=== PATIENT | female | born 1985 | race African-American/Black ===

== ENCOUNTER → 2020-01-10 | Outpatient (CLI) | payer MEDICAID ==
[~2020-01-10] MED LIST: BUME1TAB21 PO; CARV12.52 PO; FERR325T16 PO; LISI-167 PO; MAGN400T50 PO; POTA20TA6 PO; SPIR25TA PO
== END | disposition home or self-care (01) ==
LOC: CFH 09:53
PROVIDERS: ATTEND Internal Medicine Cardiovascular Disease
DX: I42.0 Dilated cardiomyopathy (principal); I42.9 Cardiomyopathy, unspecified; I50.22 Chronic systolic (congestive) heart failure; Z95.810 Presence of automatic (implantable) cardiac defibrillator
CPT/HCPCS: 71046

== ENCOUNTER 2020-06-25 11:40 | Outpatient (CLI) | payer MEDICAID | END 2020-06-25 23:59 | disposition home or self-care (01) | LOC: CFH 11:40 | PROVIDERS: ATTEND Internal Medicine Cardiovascular Disease | DX: I42.0 Dilated cardiomyopathy (principal); I42.9 Cardiomyopathy, unspecified; I50.22 Chronic systolic (congestive) heart failure; I50.23 Acute on chronic systolic (congestive) heart failure; R57.0 Cardiogenic shock; Z95.810 Presence of automatic (implantable) cardiac defibrillator | CPT/HCPCS: 71046 ==

== ENCOUNTER → 2020-07-04 | Outpatient (CLI) | payer MEDICAID ==
[~2020-07-04] MED LIST changes: +FERR324T23 PO; -FERR325T16 PO
== END | disposition home or self-care (01) ==
LOC: CVU 06:59
PROVIDERS: ATTEND Internal Medicine Clinical Cardiac Electrophysiology
DX: I11.0 Hypertensive heart disease with heart failure (principal); I50.22 Chronic systolic (congestive) heart failure
CPT/HCPCS: 93306

== ENCOUNTER 2020-07-12 14:44 | Outpatient (CLI) | payer MEDICAID ==
[~2020-07-12 14:44] MED LIST changes: +POTA-143 PO; -POTA20TA6 PO
[2020-07-30] MEDS ORDERED: OXYC1TAB12 PO (09:21)
== END 2020-07-12 23:59 | disposition home or self-care (01) ==
LOC: STAR 14:44
PROVIDERS: ATTEND Internal Medicine Clinical Cardiac Electrophysiology
DX: Z20.822 Contact with and (suspected) exposure to COVID-19 (principal)
CPT/HCPCS: U0003

== ENCOUNTER 2020-07-16 12:55 | Inpatient (IN) | payer MEDICAID ==
[~2020-07-16] VITALS: Ht 157.5 cm; Wt 120.0 kg
[~2020-07-16 12:55] MED LIST changes: -POTA-143 PO; +POTA20TA6 PO
[2020-07-16] MEDS: SODIUM CHLORIDE 0.9% 1,000 ML IV SCH ×2 (14:00→22:00)
[2020-07-16] MEDS ORDERED: POTA20TA14 PO (14:09)
[2020-07-16] MEDS ORDERED: SPIR25TA5 PO (14:12)
[2020-07-16 14:13] VITALS: BP 139/92
[2020-07-16 14:19] LABS: MEAN CORPUSCULAR HGB CONC 34.1 g/dL (32.4-35.8); MEAN PLATELET VOLUME 7.7 fL (7.4-10.4); PLATELET COUNT 310 x10^3/uL (130-400); RED BLOOD COUNT 4.65 x10^6/uL (3.82-5.3); RED CELL DISTRIBUTION WIDTH 12.6 % (9.6-15.2)
[2020-07-16 14:31] LABS: ANION GAP 6 mmol/L (5-15); CALCIUM 9.2 mg/dL (8.5-10.1); CHLORIDE 103 mmol/L (98-107); CREATININE 1.11 mg/dL (0.55-1.02)
[2020-07-16] MEDS ORDERED: MIDAZOLAM 1 MG/ML, 2ML ONE (14:54)
[2020-07-16] MEDS ORDERED: CEFAZOLIN PMX 1GM/50ML 50 ML ONE (14:54)
[2020-07-16] MEDS ORDERED: CEFAZOLIN 1,000 MG ONE (14:54)
[2020-07-16] MEDS ORDERED: LIDOCAINE 2%, 20ML ONE (14:54)
[2020-07-16] MEDS ORDERED: FENTANYL PF 250 MCG/5ML ONE (14:55)
[2020-07-16 15:28] LABS: MD YES
[2020-07-16 15:30] LABS: <PLATELET ESTIMATE> ADEQUATE; <PLT MORPHOLOGY> NORMAL PLT MORPH; <RBC MORPHOLOGY> NORMAL; BASOS#(MANUAL) 0.19 x10^3/uL (0-0.1); BASOS% (MANUAL) 2 % (0-1); EOS#(MANUAL) 1.03 x10^3/uL (0.0-0.4); EOS% (MANUAL) 11 % (1-7); LYMPH#(MANUAL) 2.44 x10^3/uL (1-3.4); LYMPHS% (MANUAL) 26 % (22-44); MONOS#(MANUAL) 0.19 x10^3/uL (0.3-2.7); MONOS% (MANUAL) 2 % (2-9); SEG#(MANUAL) 5.55 x10^3/uL (1.8-6.8); SEGS% (MANUAL) 59 % (42-75)
[2020-07-16] MEDS ORDERED: PHENYLEPHRINE 10 MG/ML ONE (15:35)
[2020-07-16] MEDS ORDERED: DEXAMETHASONE 4 MG/ML, 5ML ONE (15:35)
[2020-07-16] MEDS ORDERED: PROPOFOL 10 MG/ML, 20ML ONE (15:35)
[2020-07-16] MEDS ORDERED: SUCCINYLCHOLINE 20 MG/ML, 10ML ONE (15:35)
[2020-07-16] MEDS ORDERED: ONDANSETRON 2MG/ML, 2ML ONE (15:51)
[2020-07-16] MEDS ORDERED: ROCURONIUM 10MG/ML,5ML ONE (15:51)
[2020-07-16] MEDS ORDERED: FENTANYL PF 100 MCG/2ML ONE (16:24)
[2020-07-16] MEDS ORDERED: HEPARIN 1,000 UNITS/ML, 30ML ONE (16:36)
[2020-07-16] MEDS ORDERED: HOLD MEDICATION MC PRN (19:00)
[2020-07-16] MEDS: HYDROcodone/APAP 5/325 TABLET PO PRN ×2 (20:47→22:09)
[2020-07-16] MEDS: CARVEDILOL 12.5 MG TABLET PO SCH (22:09)
[2020-07-16] MEDS ORDERED: LISINOPRIL 10 MG TABLET ONE (22:29)
[2020-07-16] MEDS ORDERED: LISINOPRIL 10 MG TABLET PO ONE (22:30)
[2020-07-16] MEDS: SODIUM CHLORIDE FLUSH 10ML SYR IVF SCH (22:55)
[2020-07-17] MEDS: HYDROcodone/APAP 5/325 TABLET PO PRN ×2 (06:17→10:30)
[2020-07-17] MEDS: CARVEDILOL 12.5 MG TABLET PO SCH (06:17)
[2020-07-17] MEDS ORDERED: POTASSIUM CHLORIDE 20 MEQ TAB.ER.PRT PO SCH (08:00)
[2020-07-17] MEDS: SODIUM CHLORIDE FLUSH 10ML SYR IVF SCH (08:33)
[2020-07-17] MEDS ORDERED: SPIRONOLACTONE 25 MG TABLET PO SCH (09:00)
[2020-07-17] MEDS ORDERED: BUMETANIDE 1 MG TABLET PO SCH (09:00)
[2020-07-17] MEDS ORDERED: LISINOPRIL 10 MG TABLET PO SCH (09:00)
[2020-07-17] MEDS ORDERED: ACET325T14 PO (09:59)
[2020-07-17] MEDS ORDERED: HYDR-2214 PO (10:23)
== END 2020-07-17 11:10 | disposition home or self-care (01) | DRG 177 ==
LOC: CACL 12:55 → OBSVTOIN 19:21 → CCU 19:21
PROVIDERS: ADMIT Internal Medicine Clinical Cardiac Electrophysiology; ATTEND Internal Medicine Clinical Cardiac Electrophysiology
PROC: 02H63KZ Insertion of Defibrillator Lead into Right Atrium, Percutaneous Approach (ICD-10-PCS; 2020-07-16)
PROC: 02HK3KZ Insertion of Defibrillator Lead into Right Ventricle, Percutaneous Approach (ICD-10-PCS; 2020-07-16)
PROC: 02PA3MZ Removal of Cardiac Lead from Heart, Percutaneous Approach (ICD-10-PCS; principal; 2020-07-16 15:30)
DX: T82.198A Other mechanical complication of other cardiac electronic device, initial encounter (principal); Y84.8 Other medical procedures as the cause of abnormal reaction of the patient, or of later complication, without mention of misadventure at the time of the procedure; Y92.89 Other specified places as the place of occurrence of the external cause
CPT/HCPCS: 33217; 33244; 33263; 36005; 36415; 71045; 71046; 80048; 84702; 85025; 86850; 86900; 93005; 93312; 93325; C1769; C1779; C1892; C1894; C1895; G0378; J0690; J1100; J1644; J2250; J2405; J2704; J3010; C1773; J0330; J2370; Q9967

== ENCOUNTER → 2020-07-24 | Outpatient (CLI) | payer MEDICAID ==
[~2020-07-24] MED LIST changes: +ACET325T14 PO; +HYDR-2214 PO; +POTA20TA14 PO; +SPIR25TA5 PO
== END | disposition home or self-care (01) ==
LOC: CFH 10:22
PROVIDERS: ATTEND Registered Nurse
DX: I11.0 Hypertensive heart disease with heart failure (principal); I16.1 Hypertensive emergency; I42.0 Dilated cardiomyopathy; I50.22 Chronic systolic (congestive) heart failure; I50.23 Acute on chronic systolic (congestive) heart failure; J96.01 Acute respiratory failure with hypoxia; R57.0 Cardiogenic shock; Z45.02 Encounter for adjustment and management of automatic implantable cardiac defibrillator; Z95.810 Presence of automatic (implantable) cardiac defibrillator
CPT/HCPCS: 71046

== ENCOUNTER 2020-07-29 10:47 | Observation (INO) | payer MEDICAID ==
[~2020-07-29] VITALS: Ht 157.5 cm; Wt 115.1 kg
[~2020-07-29 10:47] MED LIST changes: +ACETAMINOPHEN 325 MG TABLET PO PRN; +EPHEDRINE 50 MG/ML, 1ML IVPush PRN; +FENTANYL PF 100 MCG/2ML IV PRN; +HYDROmorphone 1 MG/ML, 1ML INJ IVPush PRN; +LABETALOL 5MG/ML, 20ML IV PRN; +ONDANSETRON 2MG/ML, 2ML IVPush PRN; +OXYcodone 5 MG/5 ML ORAL.SOL UDC PO PRN; +PLEASE ENTER HEIGHT AND WEIGHT MC SCH; +PROMETHAZINE 25 MG/ML, 1ML IVPush PRN; +hydrALAzine 20 MG/ML, 1ML IV PRN
[2020-07-29] MEDS ORDERED: FERR324T23 PO (10:55)
[2020-07-29] MEDS ORDERED: POTA20TA89 PO (10:55)
[2020-07-29] MEDS ORDERED: MAGN400T9 PO (10:55)
[2020-07-29] MEDS ORDERED: SODIUM CHLORIDE 0.9% 1,000 ML IV SCH (11:00)
[2020-07-29 11:22] VITALS: BP 126/82
[2020-07-29] MEDS ORDERED: LIDOCAINE 1%, 20ML ONE (11:25)
[2020-07-29] MEDS ORDERED: CEFAZOLIN 1,000 MG ONE ×2 (11:26→12:24)
[2020-07-29 11:34] LABS: BASOPHILS % (AUTO) 1 % (0-1); EOSINOPHILS % (AUTO) 9 % (1-7); LYMPHOCYTES % (AUTO) 30 % (22-44); MEAN CORPUSCULAR HEMOGLOBIN 30.6 pg (27.0-34.8); MEAN CORPUSCULAR HGB CONC 33.8 g/dL (32.4-35.8); MEAN PLATELET VOLUME 7.5 fL (7.4-10.4); MONOCYTES % (AUTO) 6 % (2-9); NEUTROPHILS % (AUTO) 55 % (42-75); PLATELET COUNT 326 x10^3/uL (130-400); RED CELL DISTRIBUTION WIDTH 12.8 % (9.6-15.2)
[2020-07-29 11:44] LABS: ANION GAP 6 mmol/L (5-15); CALCIUM 9.7 mg/dL (8.5-10.1); CHLORIDE 102 mmol/L (98-107); CREATININE 1.17 mg/dL (0.55-1.02)
[2020-07-29 11:55] LABS: MD NO
[2020-07-29] MEDS ORDERED: MIDAZOLAM 1 MG/ML, 2ML ONE (12:06)
[2020-07-29] MEDS ORDERED: FENTANYL PF 100 MCG/2ML ONE ×2 (12:06→14:19)
[2020-07-29] MEDS ORDERED: LIDOCAINE-MPF 2% ,5ML ONE (12:08)
[2020-07-29] MEDS ORDERED: SODIUM CHLORIDE 0.9% PF 10ML ONE (12:09)
[2020-07-29] MEDS ORDERED: ONDANSETRON 2MG/ML, 2ML ONE (12:24)
[2020-07-29] MEDS ORDERED: SUCCINYLCHOLINE 20 MG/ML, 10ML ONE (12:24)
[2020-07-29] MEDS ORDERED: DEXAMETHASONE 4 MG/ML, 1ML ONE (12:24)
[2020-07-29] MEDS ORDERED: PROPOFOL 10 MG/ML, 20ML ONE (12:24)
[2020-07-29] MEDS ORDERED: HYDROmorphone 1 MG/ML, 1ML INJ ONE (12:27)
[2020-07-29] MEDS ORDERED: PHENYLEPHRINE 10 MG/ML ONE (12:36)
[2020-07-29 13:00] VITALS: BP 110/71
[2020-07-29] MEDS ORDERED: KETOROLAC 30 MG/1 ML ONE (13:22)
[2020-07-29] MEDS ORDERED: HOLD MEDICATION MC PRN (14:00)
[2020-07-29] MEDS ORDERED: OXYcodone/APAP 5/325MG TABLET PO PRN (14:00)
[2020-07-29] MEDS ORDERED: OXYcodone 5 MG/5 ML ORAL.SOL UDC ONE (14:19)
[2020-07-29] MEDS ORDERED: ACETAMINOPHEN 650 MG/20.3 ML UDC ONE (14:20)
[2020-07-29] MEDS ORDERED: ACETAMINOPHEN 325 MG TABLET ONE (15:36)
[2020-07-29] MEDS: ACETAMINOPHEN 325 MG TABLET PO PRN ×2 (15:38→21:56)
[2020-07-29] MEDS: CARVEDILOL 12.5 MG TABLET PO SCH (17:21)
[2020-07-29 19:28] VITALS: BP 110/68
[2020-07-29] MEDS: BUMETANIDE 1 MG TABLET PO SCH (20:04)
[2020-07-29] MEDS: POTASSIUM CHLORIDE 20 MEQ TAB.ER.PRT PO SCH (20:04)
[2020-07-29] MEDS ORDERED: TEMPLATE NON-FORMULARY MED. (Potassium Chloride** 20 MEQ) PO SCH (21:00)
[2020-07-30 01:55] VITALS: BP 128/82
[2020-07-30] MEDS: CARVEDILOL 12.5 MG TABLET PO SCH (06:17)
[2020-07-30 06:50] VITALS: BP 130/79
[2020-07-30] MEDS: BUMETANIDE 1 MG TABLET PO SCH (08:34)
[2020-07-30] MEDS: POTASSIUM CHLORIDE 20 MEQ TAB.ER.PRT PO SCH (08:36)
[2020-07-30] MEDS ORDERED: LISINOPRIL 10 MG TABLET PO SCH (09:00)
[2020-07-30] MEDS ORDERED: MAGNESIUM OXIDE 400 MG TABLET PO SCH (09:00)
[2020-07-30] MEDS ORDERED: ACET325T26 PO (09:21)
[2020-07-30] MEDS ORDERED: OXYC1TAB14 PO (09:21)
== END 2020-07-30 10:25 | disposition home or self-care (01) ==
LOC: CACL 10:47 → 5SO 13:58 → CACL 15:10 → DCLOUNGE 07-30 10:19
PROVIDERS: ADMIT Internal Medicine Clinical Cardiac Electrophysiology; ATTEND Internal Medicine Clinical Cardiac Electrophysiology
DX: T82.129A Displacement of unspecified cardiac electronic device, initial encounter (principal); I42.9 Cardiomyopathy, unspecified; I11.0 Hypertensive heart disease with heart failure; I50.22 Chronic systolic (congestive) heart failure; E11.9 Type 2 diabetes mellitus without complications; Z45.02 Encounter for adjustment and management of automatic implantable cardiac defibrillator; Z95.810 Presence of automatic (implantable) cardiac defibrillator; Z79.899 Other long term (current) drug therapy
CPT/HCPCS: 33223; 36415; 71046; 80048; 84702; 85025; G0378; J0330; J0690; J1100; J1170; J1885; J2250; J2370; J2405; J2704; J3010; J3490; 33222; 33234